=== PATIENT | female | born 1950 | race Caucasian/White ===

== ENCOUNTER 2017-04-27 13:29 | Observation (INO) | payer OTHER ==
[2017-04-27] MEDS ORDERED: ASPIRIN 81 MG TABLET, CHEWABLE PO ONE (15:05)
--- NOTE | 2017-04-27 15:07 | ER Document Report ---
ED Medical Screen (RME) - General Chief Complaint: Chest Pressure Stated Complaint: DIFFICULTY BREATHING Time Seen by Provider: 04/27/17 15:02 Notes: Patient is 66 year old female with mid-sternal chest pressure that started 2-3 days ago with intermittent radiation to right shoulder and back. She has history of high blood pressure, she is not a diabetic. She has been checking blood pressure at home and it was 166/95. Denies SOB, abdominal pain, n/v/d, diaphoresis, unilateral weakness. she is currently pain free. She did take 81 mg ASA this morning. She just recently started her BP medications. TRAVEL OUTSIDE OF THE [place] IN LAST 30 DAYS: No - Related Data Allergies/Adverse Reactions: morphine Allergy (Verified 04/27/17 15:02) Home Medications: Current Home Medications Aspirin [Aspirin 81 mg Chewable Tablet] 81 mg PO DAILY 04/27/17 [History] Clonidine HCl 0.1 mg PO PRN PRN 04/27/17 [History] Metoprolol Succinate 50 mg PO DAILY 04/27/17 [History] Review of Systems - Review of Systems Constitutional: No symptoms reported EENT: No symptoms reported Cardiovascular: See HPI Respiratory: No symptoms reported Gastrointestinal: No symptoms reported Genitourinary: No symptoms reported Female Genitourinary: No symptoms reported Musculoskeletal: No symptoms reported Skin: No symptoms reported Hematologic/Lymphatic: No symptoms reported Neurological/Psychological: No symptoms reported Physical Exam - Vital signs Vitals: Temp Pulse Resp BP Pulse Ox 98.1 F 56 L 14 153/91 H 100 04/27/17 13:56 04/27/17 13:56 04/27/17 13:56 04/27/17 13:56 04/27/17 13:56 - Notes Notes: Physical exam: General: well-appearing, well-hydrated, non-toxic in appearance. speaking in full sentences without difficulty. CV: RRR, no murmur, regular S1 and S2. No peripheral edema. Midsternal chest pain reproducible on exam. Lungs: CTAB, unlabored respirations. Course - Re-evaluation Re-evalutation: 04/27/17 15:07 I have greeted and performed a rapid initial assessment of this patient. A comprehensive ED assessment and evaluation of the patient, analysis of test results and completion of the medical decision making process will be conducted by additional ED providers. - Vital Signs Vital signs: Temp Pulse Resp BP Pulse Ox 98.1 F 56 L 14 153/91 H 100 04/27/17 13:56 04/27/17 13:56 04/27/17 13:56 04/27/17 13:56 04/27/17 13:56
[2017-04-27 15:46] LABS: ABSOLUTE BASOPHILS # (AUTO) 0.1 10^3/uL (0.0-0.2); ABSOLUTE EOSINOPHILS # (AUTO) 0.2 10^3/uL (0.0-0.6); ABSOLUTE MONOCYTES (AUTO) 0.4 10^3/uL (0.1-1.4); ABSOLUTE NEUT (AUTO) 4.9 10^3/uL (1.7-8.2); BASOPHILS % (AUTO) 1.2 % (0-2); EOSINOPHILS % (AUTO) 2.4 % (0-6); HEMATOCRIT 40.9 % (36.0-47.0); HEMOGLOBIN 13.6 g/dL (12.0-15.5); LYMPHOCYTES % (AUTO) 26.1 % (13-45); MEAN CORPUSCULAR HEMOGLOBIN 29.6 pg (27.0-33.4); MEAN CORPUSCULAR HGB CONC 33.2 g/dL (32.0-36.0); MEAN CORPUSCULAR VOLUME 89 fl (80-97); MONOCYTES % (AUTO) 5.6 % (3-13); PLATELET COUNT 270 10^3/uL (150-450); RED BLOOD COUNT 4.59 10^6/uL (3.72-5.28); SEGMENTED NEUTROPHILS % (AUTO) 64.7 % (42-78); TOTAL CELLS COUNTED % (AUTO) 100 %; WHITE BLOOD COUNT 7.5 10^3/uL (4.0-10.5)
--- NOTE | 2017-04-27 16:03 | RADIOLOGY REPORT (SQ) ---
EXAM DESCRIPTION: CHEST PA/LAT COMPLETED DATE/TIME: 04/27/2017 3:42 pm REASON FOR STUDY: chest pain COMPARISON: None. EXAM PARAMETERS: NUMBER OF VIEWS: two views TECHNIQUE: Digital Frontal and Lateral radiographic views of the chest acquired. RADIATION DOSE: NA LIMITATIONS: none FINDINGS: LUNGS AND PLEURA: No opacities, masses or pneumothorax. No pleural effusion. MEDIASTINUM AND HILAR STRUCTURES: No masses or contour abnormalities. HEART AND VASCULAR STRUCTURES: Heart normal size. No evidence for failure. BONES: No acute findings. HARDWARE: None in the chest. OTHER: No other significant finding. IMPRESSION: NO SIGNIFICANT RADIOGRAPHIC FINDING IN THE CHEST. TECHNICAL DOCUMENTATION: JOB ID: [id number] [email or web address]- All Rights Reserved
[2017-04-27 16:08] LABS: ALANINE AMINOTRANSFERASE 35 U/L (9-52); ALBUMIN 4.2 g/dL (3.5-5.0); ALKALINE PHOSPHATASE 86 U/L (38-126); ANION GAP 10 (5-19); ASPARTATE AMINO TRANSFERASE 24 U/L (14-36); BILIRUBIN,DIRECT 0.3 mg/dL (0.0-0.4); BILIRUBIN,TOTAL 0.4 mg/dL (0.2-1.3); BLOOD UREA NITROGEN 18 mg/dL (7-20); CARBON DIOXIDE 31 mmol/L (22-30); CHLORIDE 105 mmol/L (98-107); CREATINE KINASE 28 U/L (30-135); GLUCOSE 84 mg/dL (75-110); POTASSIUM 4.7 mmol/L (3.6-5.0); SODIUM 146.4 mmol/L (137-145); TOTAL PROTEIN 6.7 g/dL (6.3-8.2)
[2017-04-27 16:20] LABS: CREATINE KINASE MB 0.96 ng/mL (<4.55)
[2017-04-27 16:24] LABS: TROPONIN I < 0.012 ng/mL
--- NOTE | 2017-04-27 16:38 | ER Document Report ---
ED General - General Chief Complaint: Chest Pressure Stated Complaint: DIFFICULTY BREATHING Time Seen by Provider: 04/27/17 15:02 Notes: Ms. Sandhu is a 66-year-old female experiencing intermittent chest pressure described as heaviness with shortness of breath, sometimes on exertion sometimes with stress, for the past 2 days. She has no vomiting or back pain. She is currently pain-free. She is a history of hypertension and a remote smoking history. She is currently being worked up by hammer repairer and is due to have a nuclear stress test. TRAVEL OUTSIDE OF THE [place] IN LAST 30 DAYS: No - Related Data Allergies/Adverse Reactions: morphine Allergy (Verified 04/27/17 15:02) Home Medications: Current Home Medications Aspirin [Aspirin 81 mg Chewable Tablet] 81 mg PO DAILY 04/27/17 [History] Clonidine HCl 0.1 mg PO PRN PRN 04/27/17 [History] Metoprolol Succinate 50 mg PO DAILY 04/27/17 [History] Past Medical History - General Information source: Patient - Social History Smoking Status: Former Smoker Chew tobacco use (# tins/day): No Frequency of alcohol use: None Drug Abuse: None Family History: None Patient has suicidal ideation: No Patient has homicidal ideation: No Renal/ Medical History: Denies: Hx Peritoneal Dialysis Review of Systems - Review of Systems Notes: REVIEW OF SYSTEMS GEN: Denies fever, chills, weight loss ENT: Denies sore throat, nasal discharge, ear pain EYES: Denies blurry vision, eye pain, discharge CV: Chest pain RESP: Shortness of breath GI: Denies abdominal pain, nausea, vomiting, diarrhea MSK: Denies joint pain/swelling, edema, SKIN: Denies rash, skin lesions LYMPH: Denies swollen glands/lymph nodes NEURO: Denies headache, focal weakness or numbness, dizziness PSYCH: Denies depression, suicidal or homicidal ideation PHYSICAL EXAMINATION General: No acute distress, well-nourished Head: Atraumatic, normocephalic ENT: Mouth normal, oropharynx moist, no exudates or tonsillar enlargement Eyes: Conjunctiva normal, pupils equal, lids normal Neck: No JVD, supple, no guarding CVS: Normal rate, regular rhythm, no murmurs Resp: No resp distress, equal and normal breath sounds bilaterally GI: Nondistended, soft, no tenderness to palpation, no rebound or guarding Ext: No deformities, no edema, normal range of motion in upper and lower ext Back: No CVA or midline TTP Skin: No rash, warm Lymphatic: No lymphadeopathy noted Neuro: Awake, alert. Face symmetric. GCS 15. Physical Exam - Vital signs Vitals: Temp Pulse Resp BP Pulse Ox 98.1 F 55 L 14 153/91 H 100 04/27/17 13:30 04/27/17 13:30 04/27/17 13:30 04/27/17 13:30 04/27/17 13:30 Course - Re-evaluation Re-evalutation: 04/27/17 16:37 66-year-old female with 2 risk factors for acute coronary syndrome resents with anginal sounding chest pain. Other physicians were concerned with her risk factors. She has an abnormal EKG but is all conduction block rather than ischemia. That said, she will be admitted for risk stratification. Will give aspirin. T tone and is pending. Ing. 04/27/17 17:58 Reassessed. Still pain-free. Negative. Admitted to hospitalist Peterson Lim. Telemetry observation. - Vital Signs Vital signs: Temp Pulse Resp BP Pulse Ox 98.1 F 56 L 20 169/97 H 93 04/27/17 13:56 04/27/17 13:56 04/27/17 17:02 04/27/17 17:02 04/27/17 17:02 - Laboratory Result Diagrams: 04/27/17 15:15 04/27/17 15:15 Laboratory results interpreted by me: 04/27/17 15:15 Sodium 146.4 H Carbon Dioxide 31 H Creatine Kinase 28 L - Diagnostic Test Radiology reviewed: Image reviewed, Reports reviewed - EKG Interpretation by Ar EKG shows normal: Sinus rhythm Rate: Normal When compared to previous EKG there are: Previous EKG unavailable - No ST or T- wave changes Discharge - Discharge Clinical Impression: Unstable angina Condition: Fair Disposition: ADMITTED OBSERVATION Admitting Provider: Hospitalist Unit Admitted: Telemetry
[2017-04-27] MEDS ORDERED: ACETAMINOPHEN 325 MG TABLET PO PRN (18:31)
[2017-04-27] MEDS ORDERED: ONDANSETRON HCL INJ/PF 4 MG/2 ML SDV IV PRN (18:31)
[2017-04-27] MEDS ORDERED: ONDANSETRON 4 MG TAB.RAPDIS PO PRN (18:31)
--- NOTE | 2017-04-27 18:48 | PDOC H&P ---
History of Present Illness Admission Date/PCP: April 27, 2017 Patient complains of: Chest pressure History of Present Illness: ARIANE RODRIGUEZ is a 66 year old female who is visiting from out of town who presents with a 2 day history of intermittent chest pressure. Patient reports that she has substernal chest pressure that does not usually radiate but occasionally radiates to her mid back. She denies any shortness of breath associated with this. Denies any palpitations or tachycardia. Denies any nausea or diaphoresis. She denies any exertional symptoms. The patient was seen by her primary care doctor who did an EKG and then referred her to a access rep for further evaluation. Her EKG here shows a right bundle branch block with a left anterior fascicular block. She was seen by her access rep who said that she needed to have a stress test to evaluate this however it was not emergent and the patient asked for to be put off since it was the end of the year. She presents with this chest pain and is currently pain-free. The patient has a history of hypertension that was diagnosed last year. She reports that prior to last year she had normal blood pressures at her annual visits. She does have a history of a parathyroid adenoma and is status post parathyroidectomy. She does report that she has episodes of flushing and her blood pressures sometimes become quite elevated at other times are much lower. She denies having any syncope associated with this. She has been compliant with her antihypertensives. Past Medical History Cardiac Medical History: Reports: Hyperlipidema, Hypertension Pulmonary Medical History: Reports: None EENT Medical History: Reports: None Neurological Medical History: Reports: None Endocrine Medical History: Reports: Other - Hyperparathyroidism status post parathyroidectomy Renal/ Medical History: Reports: None Malignancy Medical History: Reports: None GI Medical History: Reports: Gastroesophageal Reflux Disease Musculoskeltal Medical History: Reports: None Psychiatric Medical History: Reports: None Traumatic Medical History: Reports: None Hematology: Reports: None Infectious Medical History: Reports: None Past Surgical History Past Surgical History: Reports: Hysterectomy, Other - Status post parathyroidectomy for hypercalcemia Social History Information Source: Patient Lives with: Spouse/Significant other Smoking Status: Former Smoker Frequency of Alcohol Use: None Hx Recreational Drug Use: No Drugs: None - Advance Directive Resuscitation Status: Full Code Surrogate healthcare decision maker:: Her Family History Family History: Mother at age 93 and had no chronic health problems. Father at age 15 had coronary disease and hypertension. Parental Family History Reviewed: Yes Children Family History Reviewed: No Sibling(s) Family History Reviewed.: Yes Medication/Allergy Home Medications: Aspirin [Aspirin 81 mg Chewable Tablet] 81 mg PO DAILY 04/27/17 Clonidine HCl 0.1 mg PO PRN PRN 04/27/17 Metoprolol Succinate 50 mg PO DAILY 04/27/17 Allergies/Adverse Reactions: morphine Allergy (Verified 04/27/17 15:02) Review of Systems Constitutional: ABSENT: chills, fever(s), headache(s), weight gain, weight loss Eyes: ABSENT: visual disturbances Ears: ABSENT: hearing changes Cardiovascular: PRESENT: as per HPI Respiratory: ABSENT: cough, hemoptysis Gastrointestinal: ABSENT: abdominal pain, constipation, diarrhea, hematemesis, hematochezia, nausea, vomiting Genitourinary: ABSENT: dysuria, hematuria Musculoskeletal: ABSENT: joint swelling Integumentary: ABSENT: rash, wounds Neurological: ABSENT: abnormal gait, abnormal speech, confusion, dizziness, focal weakness, syncope Psychiatric: ABSENT: anxiety, depression Endocrine: PRESENT: flushing Hematologic/Lymphatic: ABSENT: easy bleeding, easy bruising Physical Exam Vital Signs: Temp Pulse Resp BP Pulse Ox 98.1 F 56 L 20 169/97 H 93 04/27/17 13:56 04/27/17 13:56 04/27/17 17:02 04/27/17 17:02 04/27/17 17:02 Intake & Output 04/26/17 04/27/17 04/28/17 06:59 06:59 06:59 Weight 78 kg General appearance: PRESENT: no acute distress, well-developed, well-nourished Head exam: PRESENT: atraumatic, normocephalic Eye exam: PRESENT: conjunctiva pink, EOMI, PERRLA. ABSENT: scleral icterus Ear exam: PRESENT: normal external ear exam Mouth exam: PRESENT: moist, tongue midline Neck exam: ABSENT: carotid bruit, JVD, lymphadenopathy, thyromegaly Respiratory exam: PRESENT: clear to auscultation jason. ABSENT: rales, rhonchi, wheezes Cardiovascular exam: PRESENT: RRR. ABSENT: diastolic murmur, rubs, systolic murmur Pulses: PRESENT: normal dorsalis pedis pul Vascular exam: PRESENT: normal capillary refill GI/Abdominal exam: PRESENT: normal bowel sounds, soft. ABSENT: distended, guarding, mass, organolmegaly, rebound, tenderness Rectal exam: PRESENT: deferred Extremities exam: ABSENT: calf tenderness, clubbing, pedal edema Neurological exam: PRESENT: alert, awake, oriented to person, oriented to place , oriented to time, oriented to situation, CN II-XII grossly intact. ABSENT: motor sensory deficit Psychiatric exam: PRESENT: appropriate affect, normal mood Skin exam: PRESENT: dry, intact, warm. ABSENT: cyanosis, rash Results Laboratory Results: 04/27/17 15:15 04/27/17 15:15 04/27/17 04/27/17 15:15 15:15 WBC 7.5 RBC 4.59 Hgb 13.6 Hct 40.9 MCV 89 MCH 29.6 MCHC 33.2 RDW 14.0 Plt Count 270 Seg Neutrophils % 64.7 Lymphocytes % 26.1 Monocytes % 5.6 Eosinophils % 2.4 Basophils % 1.2 Absolute Neutrophils 4.9 Absolute Lymphocytes 2.0 Absolute Monocytes 0.4 Absolute Eosinophils 0.2 Absolute Basophils 0.1 Sodium 146.4 H Potassium 4.7 Chloride 105 Carbon Dioxide 31 H Anion Gap 10 BUN 18 Creatinine 0.73 Est GFR ( Amer) > 60 Est GFR (Non-Af Amer) > 60 Glucose 84 Calcium 10.0 Total Bilirubin 0.4 AST 24 ALT 35 Alkaline Phosphatase 86 Total Protein 6.7 Albumin 4.2 04/27/17 04/27/17 15:15 15:15 Creatine Kinase 28 L CK-MB (CK-2) 0.96 Troponin I < 0.012 Impressions: Chest X-Ray 04/27/17 15:06 IMPRESSION: NO SIGNIFICANT RADIOGRAPHIC FINDING IN THE CHEST. Assessment & Plan - Diagnosis (1) Chest pain Is this a current diagnosis for this admission?: Yes Plan: The chest pain is atypical and is not exertional related. She does however has risk factors in hypertension, hyperlipidemia and family history. We will monitor on telemetry and check serial cardiac enzymes. If they are normal we will get a Cardiolite stress test tomorrow. My suspicion given the fact that it radiates through to her back is that this is esophageal spasms. There is no evidence for any type of dissection. She has equal pulses bilaterally. She will be given aspirin and continue with her metoprolol. (2) Hypertension Is this a current diagnosis for this admission?: Yes Plan: She was just diagnosed last year with elevated blood pressures. This makes me suspicious for possible secondary cause for her hypertension. She does have a history of hyperparathyroid adenoma. She does report widely fluctuating blood pressures and flushing frequently. Given these findings the possibility of a pheochromocytoma is considered. I discussed this with the patient and suggested that she discuss with her primary care doctor to see whether she needs a workup for a pheochromocytoma. Will check a TSH to make certain that she does not have hyperthyroidism also. We will continue with her metoprolol that she is taking as an outpatient. - Time Time Spent: 50 to 70 Minutes - Plan Summary Plan Summary: Will admit as observation.
[2017-04-27 21:47] LABS: CREATINE KINASE MB 0.78 ng/mL (<4.55)
[2017-04-27 21:48] LABS: TROPONIN I < 0.012 ng/mL
[2017-04-27] MEDS: FAMOTIDINE 20 MG TABLET PO SCH (21:49)
[2017-04-28 03:36] LABS: TROPONIN I < 0.012 ng/mL
[2017-04-28] MEDS: FAMOTIDINE 20 MG TABLET PO SCH (09:36)
[2017-04-28] MEDS ORDERED: ASPIRIN 81 MG TABLET, CHEWABLE PO SCH (10:00)
[2017-04-28] MEDS ORDERED: METOPROLOL SUCCINATE 50 MG TAB.SR.24H PO SCH (10:00)
[2017-04-28 10:11] LABS: CREATINE KINASE MB 0.42 ng/mL (<4.55)
[2017-04-28 10:13] LABS: TROPONIN I < 0.012 ng/mL
--- NOTE | 2017-04-28 10:29 | EKG REPORT ---
SEVERITY:- ABNORMAL ECG - SINUS RHYTHM RBBB AND LAFB : Confirmed by: Marvel Patel 28-Apr-2017 10:29:03
--- NOTE | 2017-04-28 11:54 | PDOC DISCHARGE SUMMARY ---
General - Admit/Disc Date/PCP Admission Date/Primary Care Provider: 04/27/17 18:45 Discharge Date: 04/28/17 - Discharge Diagnosis (1) Chest pain Is this a current diagnosis for this admission?: Yes Summary: Most likely secondary to gastroesophageal reflux disease (2) Hypertension Is this a current diagnosis for this admission?: Yes Summary: Patient had late onset hypertension. I discussed possibly being worked up for pheochromocytoma with the patient. She will follow-up with her primary care doctor for that - Additional Information Resuscitation Status: Full Code Discharge Diet: Cardiac Discharge Activity: Activity As Tolerated Home Medications: Aspirin [Aspirin 81 mg Chewable Tablet] 81 mg PO DAILY 04/27/17 Clonidine HCl 0.1 mg PO ASDIR PRN 04/27/17 Metoprolol Succinate 50 mg PO DAILY 04/27/17 Famotidine [Pepcid 20 mg Tablet] 20 mg PO Q12 tablet 04/28/17 History of Present Illness History of Present Illness: ARIANE RODRIGUEZ is a 66 year old female who is visiting from out of town who presents with a 2 day history of intermittent chest pressure. Patient reports that she has substernal chest pressure that does not usually radiate but occasionally radiates to her mid back. She denies any shortness of breath associated with this. Denies any palpitations or tachycardia. Denies any nausea or diaphoresis. She denies any exertional symptoms. The patient was seen by her primary care doctor who did an EKG and then referred her to a auto club travel counselor for further evaluation. Her EKG here shows a right bundle branch block with a left anterior fascicular block. She was seen by her auto club travel counselor who said that she needed to have a stress test to evaluate this however it was not emergent and the patient asked for to be put off since it was the end of the year. She presents with this chest pain and is currently pain-free. The patient has a history of hypertension that was diagnosed last year. She reports that prior to last year she had normal blood pressures at her annual visits. She does have a history of a parathyroid adenoma and is status post parathyroidectomy. She does report that she has episodes of flushing and her blood pressures sometimes become quite elevated at other times are much lower. She denies having any syncope associated with this. She has been compliant with her antihypertensives. Hospital Course Hospital Course: 66-year-old female who presented with chest pain. She had no exertional component to it. Her EKG showed a right bundle branch block. The patient had negative cardiac enzymes and unremarkable symmetry. Most likely this represents gastroesophageal reflux disease. We were unable to do a stress test because of lack of isotope. Because of this we will schedule an outpatient stress test to be done on Wednesday. Patient also has hypertension that was diagnosed last year. She does have some symptoms that are suggestive of pheochromocytoma. I discussed this with the patient and she will follow-up with her primary care doctor to see whether she should be worked up for this or not. Patient is to start on Pepcid and follow-up on Wednesday for her stress test. Physical Exam Vital Signs: Temp Pulse Resp BP Pulse Ox 98.1 F 56 L 13 143/81 H 95 04/27/17 13:56 04/27/17 13:56 04/28/17 07:01 04/28/17 07:01 04/28/17 07:01 General appearance: PRESENT: no acute distress Eye exam: PRESENT: conjunctiva pink. ABSENT: scleral icterus Mouth exam: PRESENT: moist, tongue midline Neck exam: ABSENT: JVD Respiratory exam: PRESENT: clear to auscultation jason. ABSENT: rales, rhonchi, wheezes Cardiovascular exam: PRESENT: RRR. ABSENT: diastolic murmur, rubs, systolic murmur GI/Abdominal exam: PRESENT: normal bowel sounds, soft. ABSENT: distended, guarding, mass, organolmegaly, rebound, tenderness Extremities exam: ABSENT: calf tenderness, clubbing, pedal edema Neurological exam: PRESENT: alert, awake, oriented to person, oriented to place , oriented to time, oriented to situation, CN II-XII grossly intact. ABSENT: motor sensory deficit Psychiatric exam: PRESENT: appropriate affect Skin exam: PRESENT: dry, intact, warm. ABSENT: cyanosis, rash Results Laboratory Results: 04/28/17 02:50 TSH 2.42 04/27/17 04/27/17 04/28/17 21:05 21:05 02:50 Creatine Kinase 22 L < 20 L CK-MB (CK-2) 0.78 Troponin I < 0.012 04/28/17 04/28/17 04/28/17 02:50 09:20 09:20 Creatine Kinase < 20 L CK-MB (CK-2) 0.40 0.42 Troponin I < 0.012 < 0.012 Impressions: Chest X-Ray 04/27/17 15:06 IMPRESSION: NO SIGNIFICANT RADIOGRAPHIC FINDING IN THE CHEST. Qualifiers PATEINT BEING DISCHARGED WITH ANY OF THE FOLLOWING DIAGNOSIS?: No Plan Discharge Plan: Discharged to home. Will follow up on Wednesday for a outpatient stress test. Follow-up with primary care in 2 weeks. Time Spent: Less than 30 Minutes
[2017-04-28 12:40] VITALS: BP 153/91
== END 2017-04-28 13:10 | disposition home or self-care (01) ==
LOC: ER 13:29 → EH 18:45
PROVIDERS: ADMIT Internal Medicine; ATTEND Internal Medicine
DX: R07.89 Other chest pain (principal); I10 Essential (primary) hypertension; I45.2 Bifascicular block; R23.2 Flushing; Z79.899 Other long term (current) drug therapy; Z98.890 Other specified postprocedural states; Z87.898 Personal history of other specified conditions; Z87.891 Personal history of nicotine dependence; Z82.49 Family history of ischemic heart disease and other diseases of the circulatory system
CPT/HCPCS: 93005; 99285; 36415 ×2; 82553 ×2; 82550 ×2; 84443; 85025; 80053; 84484 ×2; 71046; 93010; J3490